=== PATIENT | male | born 1985 | race Caucasian/White ===

== ENCOUNTER 2023-05-16 14:03 | Emergency (ER) | payer MEDICAID ==
[~2023-05-16] VITALS: Ht 177.8 cm; Wt 95.0 kg
[2023-05-16] MEDS ORDERED: predniSONE 20 MG TAB PO ONE (15:30)
[2023-05-16] MEDS ORDERED: IBUPROFEN 800 MG TAB PO ONE (15:30)
[2023-05-16] MEDS ORDERED: IBUP-1455 PO (15:48)
[2023-05-16] MEDS ORDERED: ACE3T PO (15:48)
[2023-05-16] MEDS ORDERED: AUG875T PO (15:48)
[2023-05-16 15:57] VITALS: BP 128/87; PULSE 105; RESP 18; TEMP 98.7; O2SAT 96
== END 2023-05-16 16:44 | disposition home or self-care (01) ==
LOC: ER 14:03
DX: K04.7 Periapical abscess without sinus (principal)
CPT/HCPCS: 99283; J7512